=== PATIENT | male | born 1960 | race Caucasian/White ===

== ENCOUNTER 2016-06-22 07:45 | Emergency (ER) | payer OTHER ==
[~2016-06-22] VITALS: Ht 177.8 cm; Wt 89.0 kg
[~2016-06-22 07:45] MED LIST: ALBUTEROL0.63 MG/3 INH; CEFDINIR300 MG PO; CHILDRENS CHEWA81 MG PO; COMBIVENT RESPIM4 GM INH; DICLOFENAC SODI25 MG PO; FLEXERIL10 MG PO; HUMALOG100 UNIT/1 SQ; IBUPROFEN800 MG PO; KLONOPIN0.5 MG PO; KLONOPIN1 MG PO; LANTUS100 UNIT/1 SQ; LEVOCETIRIZINE D5 MG PO; METFORMIN HCL500 MG PO; METOPROLOL TART25 MG PO; NEURONTIN600 MG PO; PLAVIX75 MG PO; PREDNISONE10 M1 PO; PRILOSEC40 MG PO; SINGULAIR10 MG PO; TESSALON PERLE100 MG PO; TUDORZA PRESS400 MCG INH; TYLENOL325 M1 PO; ULTRAM50 MG PO; VISTARIL25 MG PO; ZESTRIL2.5 MG PO; ZITHROMAX250 MG PO; ZITHROMAX500 MG PO
[2016-06-22 08:43] LABS: BASO % 0.7 % (0.2-1.2); EOS # 0.6 10_X3_uL (0.0-0.5); EOS % 10.3 % (0.8-7.0); GRAN % 53.3 % (34.0-67.9); HEMOGLOBIN 13.5 g/dL (13.7-17.5); LYMPH # 1.5 10_X3_uL (1.3-3.6); LYMPH % 25.9 % (21.8-53.1); MEAN CORPUSCULAR HEMOGLOBIN 32.4 pg (27.0-33.0); MEAN CORPUSCULAR HGB CONC 34.6 g/dL (32.0-36.0); MEAN CORPUSCULAR VOLUME 93.5 fL (79-92); MEAN PLATELET VOLUME 11.2 fl (7.5-11.5); MONO # 0.6 10_X3_uL (0.3-0.8); MONO % 9.8 % (5.3-12.2); PLATELET COUNT 172 x10_3/uL (163-337); RED BLOOD COUNT 4.17 x10_6/uL (4.6-6.1); RED CELL DISTRIBUTION WIDTH 13.5 % (11.6-14.4); WHITE BLOOD COUNT 5.6 x10_3/uL (4.2-9.1)
[2016-06-22 08:59] LABS: ALBUMIN 3.6 gm/dL (3.4-5.0); ALKALINE PHOSPHATASE 56 U/L (50-136); ALT/SGPT 63 U/L (7.53-40.17); AMYLASE 40 U/L (15.62-74.58); AST/SGOT 55 U/L (6.66-35.34); BILIRUBIN,TOTAL 0.94 mg/dL (0.0-1.0); BLOOD UREA NITROGEN 10 mg/dL (7-18); CALCIUM 8.3 mg/dL (8.7-10.7); CARBON DIOXIDE 24 mmol/L (21-32); CREATINE KINASE 928 U/L (35-232); CREATININE 0.8 mg/dL (0.6-1.3); GLUCOSE,RANDOM 130 mg/dL (70-99); LIPASE 37 U/L (6.75-60.75); POTASSIUM 3.5 mmol/L (3.5-5.1); SODIUM 139 mmol/L (136-145); TOTAL PROTEIN 6.1 gm/dL (6.4-8.2)
== END 2016-06-22 15:03 | disposition left against medical advice (07) ==
LOC: ER 07:45 → MS 10:14 → ER 10:14 → MS 15:03 → UNDODEPER 06-24 11:07
PROVIDERS: Family Medicine
DX: J44.1 Chronic obstructive pulmonary disease with (acute) exacerbation (principal); E11.9 Type 2 diabetes mellitus without complications; I51.9 Heart disease, unspecified; Z95.5 Presence of coronary angioplasty implant and graft; R10.9 Unspecified abdominal pain; R06.2 Wheezing; Z79.4 Long term (current) use of insulin; Z79.899 Other long term (current) drug therapy; Z79.02 Long term (current) use of antithrombotics/antiplatelets; Z79.1 Long term (current) use of non-steroidal anti-inflammatories (NSAID); Z86.14 Personal history of Methicillin resistant Staphylococcus aureus infection
CPT/HCPCS: 36415; 71020; 80053; 82150; 82550; 82553; 82962; 83605; 83690; 85025; 86738; 93005; 96374; 96375; 99070; 99285-25

== ENCOUNTER 2016-07-02 14:04 | Emergency (ER) | payer OTHER ==
[2016-07-02 15:08] LABS: BASO # 0.1 10_X3_uL (0.0-0.1); BASO % 0.5 % (0.2-1.2); EOS # 0.3 10_X3_uL (0.0-0.5); EOS % 2.7 % (0.8-7.0); GRAN % 64.6 % (34.0-67.9); HEMOGLOBIN 15.4 g/dL (13.7-17.5); LYMPH # 2.3 10_X3_uL (1.3-3.6); LYMPH % 24.1 % (21.8-53.1); MEAN CORPUSCULAR HEMOGLOBIN 32.6 pg (27.0-33.0); MEAN CORPUSCULAR HGB CONC 34.2 g/dL (32.0-36.0); MEAN CORPUSCULAR VOLUME 95.3 fL (79-92); MEAN PLATELET VOLUME 11.7 fl (7.5-11.5); MONO # 0.8 10_X3_uL (0.3-0.8); MONO % 8.1 % (5.3-12.2); PLATELET COUNT 199 x10_3/uL (163-337); RED BLOOD COUNT 4.72 x10_6/uL (4.6-6.1); RED CELL DISTRIBUTION WIDTH 13.5 % (11.6-14.4); WHITE BLOOD COUNT 9.3 x10_3/uL (4.2-9.1)
[2016-07-02 15:25] LABS: ALBUMIN 3.9 gm/dL (3.4-5.0); ALKALINE PHOSPHATASE 67 U/L (50-136); ALT/SGPT 52 U/L (7.53-40.17); AST/SGOT 25 U/L (6.66-35.34); BILIRUBIN,TOTAL 0.73 mg/dL (0.0-1.0); BLOOD UREA NITROGEN 14 mg/dL (7-18); CALCIUM 8.8 mg/dL (8.7-10.7); CARBON DIOXIDE 25 mmol/L (21-32); CREATININE 0.8 mg/dL (0.6-1.3); GLUCOSE,RANDOM 178 mg/dL (70-99); POTASSIUM 3.6 mmol/L (3.5-5.1); SODIUM 140 mmol/L (136-145); TOTAL PROTEIN 6.8 gm/dL (6.4-8.2)
== END 2016-07-02 18:35 | disposition home or self-care (01) ==
LOC: ER 14:04
PROVIDERS: General Practice
DX: J45.901 Unspecified asthma with (acute) exacerbation (principal); J44.9 Chronic obstructive pulmonary disease, unspecified; K44.9 Diaphragmatic hernia without obstruction or gangrene; R05 Cough; I25.10 Atherosclerotic heart disease of native coronary artery without angina pectoris; E11.9 Type 2 diabetes mellitus without complications; Z95.5 Presence of coronary angioplasty implant and graft; J60 Coalworker's pneumoconiosis; Z99.81 Dependence on supplemental oxygen; Z79.899 Other long term (current) drug therapy; Z79.4 Long term (current) use of insulin; Z79.1 Long term (current) use of non-steroidal anti-inflammatories (NSAID); Z79.82 Long term (current) use of aspirin
CPT/HCPCS: 36415; 71010; 71260; 80053; 83605; 83880; 85025; 87040; 93005; 94664; 96361; 96374; 96375; 99070; 99285-25; J2920; J7040; Q9967

== ENCOUNTER 2016-07-07 07:30 | Inpatient (IN) | payer OTHER ==
[~2016-07-07] VITALS: Ht 177.8 cm; Wt 89.0 kg
[2016-07-07 08:31] LABS: BASO % 0.1 % (0.2-1.2); EOS % 0.4 % (0.8-7.0); GRAN # 9.1 10_X3_uL (1.8-5.4); GRAN % 87.5 % (34.0-67.9); HEMATOCRIT 44.2 % (40-51); HEMOGLOBIN 15.1 g/dL (13.7-17.5); LYMPH # 0.7 10_X3_uL (1.3-3.6); MEAN CORPUSCULAR HEMOGLOBIN 32.1 pg (27.0-33.0); MEAN CORPUSCULAR HGB CONC 34.2 g/dL (32.0-36.0); MEAN CORPUSCULAR VOLUME 93.8 fL (79-92); MEAN PLATELET VOLUME 11.5 fl (7.5-11.5); MONO # 0.5 10_X3_uL (0.3-0.8); PLATELET COUNT 162 x10_3/uL (163-337); RED BLOOD COUNT 4.71 x10_6/uL (4.6-6.1); RED CELL DISTRIBUTION WIDTH 13.5 % (11.6-14.4); WHITE BLOOD COUNT 10.4 x10_3/uL (4.2-9.1)
[2016-07-07 08:45] LABS: ALBUMIN 3.6 gm/dL (3.4-5.0); ALKALINE PHOSPHATASE 65 U/L (50-136); ALT/SGPT 76 U/L (7.53-40.17); AMYLASE 43 U/L (15.62-74.58); AST/SGOT 35 U/L (6.66-35.34); BILIRUBIN,TOTAL 1.67 mg/dL (0.0-1.0); CALCIUM 8.4 mg/dL (8.7-10.7); CARBON DIOXIDE 24 mmol/L (21-32); CREATININE 0.8 mg/dL (0.6-1.3); GLUCOSE,RANDOM 252 mg/dL (70-99); LIPASE 42 U/L (6.75-60.75); POTASSIUM 3.6 mmol/L (3.5-5.1); SODIUM 136 mmol/L (136-145); TOTAL PROTEIN 6.1 gm/dL (6.4-8.2)
[2016-07-07 08:59] LABS: BLOOD UREA NITROGEN 30 mg/dL (7-18)
[2016-07-08 09:18] LABS: CKMB 3.5 ng/ml (0.0-5.0); TROP-I < 0.30 NG/ML (0.00-0.30)
[2016-07-08 22:46] LABS: URINE BILIRUBIN NEGATIVE (NEGATIVE); URINE BLOOD NEGATIVE (NEGATIVE); URINE GLUCOSE (UA) NORMAL (NORMAL); URINE KETONE 2+ (NEGATIVE); URINE LEUKOCYTE ESTERASE NEGATIVE (NEGATIVE); URINE NITRATE NEGATIVE (NEGATIVE); URINE PROTEIN NEGATIVE (NEGATIVE); UROBILINOGEN NORMAL mg/dL (<1.0)
[2016-07-09 07:36] LABS: HEMATOCRIT 40.2 % (40-51); HEMOGLOBIN 13.6 g/dL (13.7-17.5); MEAN CORPUSCULAR HEMOGLOBIN 32.1 pg (27.0-33.0); MEAN CORPUSCULAR HGB CONC 33.8 g/dL (32.0-36.0); MEAN CORPUSCULAR VOLUME 94.8 fL (79-92); MEAN PLATELET VOLUME 11.9 fl (7.5-11.5); RED BLOOD COUNT 4.24 x10_6/uL (4.6-6.1); RED CELL DISTRIBUTION WIDTH 13.2 % (11.6-14.4); WHITE BLOOD COUNT 7.4 x10_3/uL (4.2-9.1)
[2016-07-09 07:55] LABS: ALKALINE PHOSPHATASE 53 U/L (50-136); ALT/SGPT 50 U/L (7.53-40.17); AST/SGOT 21 U/L (6.66-35.34); BILIRUBIN,TOTAL 1.33 mg/dL (0.0-1.0); BLOOD UREA NITROGEN 14 mg/dL (7-18); CALCIUM 7.6 mg/dL (8.7-10.7); CARBON DIOXIDE 23 mmol/L (21-32); CREATININE 0.5 mg/dL (0.6-1.3); GLUCOSE,RANDOM 82 mg/dL (70-99); POTASSIUM 3.8 mmol/L (3.5-5.1); SODIUM 136 mmol/L (136-145); TOTAL PROTEIN 5.3 gm/dL (6.4-8.2)
== END 2016-07-13 11:23 | disposition home or self-care (01) | DRG 390 ==
LOC: ER 07:30 → MS 14:29 → UNDODEPER 07-11 15:17 → MS 07-13 11:23
PROVIDERS: Internal Medicine; ADMIT Surgery
DX: K56.60 Unspecified intestinal obstruction (principal); R11.2 Nausea with vomiting, unspecified; R10.9 Unspecified abdominal pain; Z97.8 Presence of other specified devices; E11.9 Type 2 diabetes mellitus without complications; R07.9 Chest pain, unspecified; J44.9 Chronic obstructive pulmonary disease, unspecified; I10 Essential (primary) hypertension; K21.9 Gastro-esophageal reflux disease without esophagitis; G89.4 Chronic pain syndrome; F41.9 Anxiety disorder, unspecified; R51 Headache; J45.909 Unspecified asthma, uncomplicated; E78.5 Hyperlipidemia, unspecified; R06.02 Shortness of breath; R14.3 Flatulence; S01.81XA Laceration without foreign body of other part of head, initial encounter; S00.83XA Contusion of other part of head, initial encounter; W22.09XA Striking against other stationary object, initial encounter; Y92.009 Unspecified place in unspecified non-institutional (private) residence as the place of occurrence of the external cause; Z95.5 Presence of coronary angioplasty implant and graft; Z79.4 Long term (current) use of insulin; Z79.82 Long term (current) use of aspirin; Z79.899 Other long term (current) drug therapy; Z79.1 Long term (current) use of non-steroidal anti-inflammatories (NSAID); Z99.81 Dependence on supplemental oxygen
CPT/HCPCS: 36415; 70450; 74022; 80053; 80061; 80307; 81003; 82150; 82550; 82553; 82962; 83036; 83690; 85025; 93005; 94640; 94664; 96361; 96374; 96375; 99070; 99284-25; J2765; J7040; Q9967

== ENCOUNTER 2016-07-07 07:30 | Emergency (ER) | payer OTHER | END 2016-07-07 14:29 | disposition other institution (70) | LOC: ER 07:30 | DX: K56.60 Unspecified intestinal obstruction (principal); J32.9 Chronic sinusitis, unspecified; S01.81XA Laceration without foreign body of other part of head, initial encounter; S00.83XA Contusion of other part of head, initial encounter; W22.09XA Striking against other stationary object, initial encounter; Y92.009 Unspecified place in unspecified non-institutional (private) residence as the place of occurrence of the external cause; E78.5 Hyperlipidemia, unspecified; J45.909 Unspecified asthma, uncomplicated; E11.9 Type 2 diabetes mellitus without complications; I10 Essential (primary) hypertension; K21.9 Gastro-esophageal reflux disease without esophagitis; F41.9 Anxiety disorder, unspecified; G89.29 Other chronic pain; I51.9 Heart disease, unspecified; Z95.5 Presence of coronary angioplasty implant and graft; Z99.81 Dependence on supplemental oxygen; R51 Headache; R10.9 Unspecified abdominal pain | CPT/HCPCS: 99284-25 ==

== ENCOUNTER 2016-09-10 12:59 | Emergency (ER) | payer OTHER | END 2016-09-10 15:25 | disposition home or self-care (01) | LOC: ER 12:59 | DX: S93.401A Sprain of unspecified ligament of right ankle, initial encounter (principal); S91.342A Puncture wound with foreign body, left foot, initial encounter; W01.0XXA Fall on same level from slipping, tripping and stumbling without subsequent striking against object, initial encounter; Y92.019 Unspecified place in single-family (private) house as the place of occurrence of the external cause; I25.10 Atherosclerotic heart disease of native coronary artery without angina pectoris; J44.9 Chronic obstructive pulmonary disease, unspecified; J84.9 Interstitial pulmonary disease, unspecified; K44.9 Diaphragmatic hernia without obstruction or gangrene; F41.9 Anxiety disorder, unspecified; Z79.02 Long term (current) use of antithrombotics/antiplatelets; Z79.82 Long term (current) use of aspirin; Z79.899 Other long term (current) drug therapy; Z99.81 Dependence on supplemental oxygen | CPT/HCPCS: 71250; 73030; 73610; 73630; 99070; 99284-25 ==

== ENCOUNTER 2016-09-14 12:10 | Emergency (ER) | payer OTHER ==
[2016-09-14 12:54] LABS: ARTERIAL BLOOD GAS BASE EXCESS -0.4 mmol/L (-2.0-3.0); ARTERIAL BLOOD GAS HCO3 23.6 mmol/L (22-26); ARTERIAL BLOOD GAS PCO2 38.9 mmHg (35-48)
[2016-09-14 12:57] LABS: BASO % 0.4 % (0.2-1.2); CREATININE 0.7 mg/dL (0.6-1.3); EOS # 0.4 10_X3_uL (0.0-0.5); EOS % 8.9 % (0.8-7.0); GRAN # 2.8 10_X3_uL (1.8-5.4); GRAN % 55.5 % (34.0-67.9); HEMATOCRIT 40.9 % (40-51); HEMOGLOBIN 13.8 g/dL (13.7-17.5); LYMPH # 1.4 10_X3_uL (1.3-3.6); LYMPH % 28.3 % (21.8-53.1); MEAN CORPUSCULAR HEMOGLOBIN 32.6 pg (27.0-33.0); MEAN CORPUSCULAR HGB CONC 33.7 g/dL (32.0-36.0); MEAN CORPUSCULAR VOLUME 96.7 fL (79-92); MEAN PLATELET VOLUME 11.7 fl (7.5-11.5); MONO # 0.3 10_X3_uL (0.3-0.8); MONO % 6.9 % (5.3-12.2); PLATELET COUNT 151 x10_3/uL (163-337); POTASSIUM 4.1 mmol/L (3.4-5.0); RED BLOOD COUNT 4.23 x10_6/uL (4.6-6.1); RED CELL DISTRIBUTION WIDTH 13.3 % (11.6-14.4)
== END 2016-09-14 13:50 | disposition home or self-care (01) ==
LOC: ER 12:10
PROVIDERS: Family Medicine
DX: J44.9 Chronic obstructive pulmonary disease, unspecified (principal); R07.9 Chest pain, unspecified; I51.9 Heart disease, unspecified; Z95.5 Presence of coronary angioplasty implant and graft; E11.9 Type 2 diabetes mellitus without complications; I10 Essential (primary) hypertension; Z99.81 Dependence on supplemental oxygen
CPT/HCPCS: 36415; 36600; 71020; 80048; 82550; 82553; 82803; 83880; 85025; 93005; 94664; 99070; 99285-25